=== PATIENT | male | born 1970 | race Caucasian/White ===

== ENCOUNTER 2019-12-07 23:08 | Emergency (ER) | payer OTHER, SELFPAY ==
[2019-12-07 23:12] VITALS: BP 138/94; PULSE 87; RESP 15; TEMP 36.6; O2SAT 98; BMI 28.0
--- NOTE | 2019-12-07 23:20 | ED_ITS ---
HPI - Allergic Reaction General Chief complaint: Allergic Reaction Stated complaint: Itchy Skin Time Seen by Provider: 12/07/19 23:10 Source: patient Mode of arrival: EMS Limitations: no limitations History of Present Illness HPI narrative: 49M without medical history presents with itchy skin that has since resolved. He denies any trouble swallowing, nor swelling of tongue, lips, throat or trouble breathing. He states he was in his normal state of health until this evening when he had a sudden onset of redness to his skin all over his body and he became intensely itchy. He took some benadryl and called the amb ulance and was nearly completely resolved by the time he is here. He denies any significant allergic history. He denies exposure to new foods, chemicals, or other possible stimuli. He is camping locally and was exposed to some camp smoke and a smoothie, but was yesterday too and without trouble. MD complaint: allergic reaction Onset (ago): hour(s) Exposure: unknown Symptoms: rash and itching Severity: moderate Treatment prior to arrival: benadryl Previous Allergic Reaction History: none Related Data Previous Rx's Medication Instructions Recorded prednisone 20 mg PO DAILY #5 tab 12/07/19 Allergies Allergy/AdvReac Type Severity Reaction Status Date / Time Penicillins Allergy Verified 12/07/19 23:12 Review of Systems Constitutional Constitutional: Denies chills, Denies fatigue, Denies fever(s), Denies frequent falls, Denies lethargy and Denies weakness Eyes Eyes: Denies change in vision, Denies eye discharge, Denies irritation and Denies loss of vision ENT Ears, Nose, Mouth, and Throat: Denies change in voice, Denies dizziness, Denies neck pain, Denies sore throat and Denies throat swelling Cardiovascular Cardiovascular: Denies chest pain, Denies irregular heart rhythm, Denies lightheadedness, Denies palpitations, Denies dyspnea, Denies dyspnea on exertion and Denies orthopnea Respiratory Respiratory: Denies cough, Denies dyspnea, Denies dyspnea on exertion and Denies wheezing Gastrointestinal Gastrointestinal: Denies abdominal pain, Denies change in bowel habits, Denies diarrhea, Denies nausea and Denies vomiting Musculoskeletal Musculoskeletal: Denies neck pain and Denies numbness Integumentary/Breasts Skin/Breast: Reports pruritus, Reports erythema, Reports rash and Denies wounds Neurologic Neurologic: Denies behavioral changes, Denies confusion, Denies dizziness, Denies frequent falls, Denies loss of vision, Denies numbness and Denies weakness Psychiatric Psychiatric: Denies anxiety, Denies behavioral changes, Denies confusion, Denies depression, Denies homicidal ideation and Denies suicidal ideation Endocrine Endocrine: Denies fatigue, Denies flushing and Denies palpitations Hematologic/Lymphatic Hematologic/Lymphatic: Denies easy bruising Allergic/Immunologic Allergic/Immunologic: Denies urticaria, Denies throat swelling and Denies wheezing Patient History Social History Smoking Status: Never smoker Smoking Status: Never smoker alcohol intake frequency: 0-2 drinks per day Substance Use Type: does not use Exam Narrative Exam Narrative: GENERAL: [49] year old patient appears stated age. Well- nourished, well-developed patient, in mild distress. HEAD: Atraumatic. Normocephalic. EYES: Pupils equal round and reactive. Extraocular motions intact. No scleral icterus. No injection or drainage. ENT: No swelling of tongue, lips, throat. Nose without bleeding, purulent drainage. Throat without erythema, tonsillar hypertrophy or exudate. Airway patent. NECK: Trachea midline. Non tender CARDIOVASCULAR: Regular rate and rhythm without murmurs, gallops, or rubs. RESPIRATORY: Clear to auscultation. Breath sounds equal bilaterally. No wheezes, rales, or rhonchi. GASTROINTESTINAL: Abdomen soft, non-tender, nondistended. EXTREMITIES: No edema or joint tenderness. BACK: Nontender without deformity or crepitance. No flank tenderness. NEURO: AOx3. SKIN: No rash or erythema of visible areas Initial Vital Signs Initial Vital Signs: Vital Signs Temperature 97.8 F 12/07/19 23:12 Pulse Rate 87 12/07/19 23:12 Respiratory Rate 15 12/07/19 23:12 Blood Pressure 138/94 H 12/07/19 23:12 Pulse Oximetry 98 12/07/19 23:12 Course Orders Ordered: Discontinued Medications Famotidine (Pepcid Ac) 40 mg PO NOW ONE Stop: 12/07/19 23:12 Last Admin: 12/07/19 23:23 Dose: 40 mg Documented by: [email or web address] Prednisone (Deltasone) 40 mg PO NOW ONE Stop: 12/07/19 23:16 Last Admin: 12/07/19 23:23 Dose: 40 mg Documented by: LATISHA Reevaluation(s) Reevaluation #1: patient has no symptoms. At worst he had no throat, lip, tongue, mouth, or breathing trouble. He needs to leave to get back home as the cabs are done soon. He understands that ideally we'd watch him for another 30 minutes or so but assumes this risk. He has been given return precautions and had questions answered to his apparent satisfaction Vital Signs Vital signs: Vital Signs - 8 hr 12/07/19 23:12 Temperature 97.8 F Pulse Rate 87 Respiratory Rate 15 Blood Pressure 138/94 H Pulse Oximetry 98 Discharge Plan Departure Patient Disposition: Home Clinical Impression: Allergic reaction Qualifiers: Encounter type: initial encounter Qualified Code(s): T78.40XA - Allergy, unspecified, initial encounter Instructions: DI for General Allergic Reactions Activity Restrictions/Additional Instructions: *You have been diagnosed with [allergic reaction] *What to do: *Take medications as directed, continue to take [id number] antihistamine such as Benadryl and famotidine as well as the prescription you have been given *Follow up with your primary care provider in 2-3 days, call for an appointment. Let them know you were seen in the Emergency Department and that we ask that you be seen in follow up *Return to ER if you should have any new, worsening or concerning symptoms Prescriptions: New prednisone 20 mg tablet 20 mg PO DAILY Qty: 5 RF: 0
[2019-12-07] MEDS: FAMOTIDINE 20 MG TABLET 40 MG PO (23:23)
[2019-12-07] MEDS: predniSONE 20 MG TABLET 40 MG PO (23:23)
[2019-12-07 23:36] VITALS: BP 121/77; PULSE 75; RESP 15; O2SAT 98
== END 2019-12-07 23:36 | disposition home or self-care (01) ==
LOC: ED 23:46
PROVIDERS: Emergency Provider Emergency Medicine
DX: T78.40XA Allergy, unspecified, initial encounter (principal)
CPT/HCPCS: 99283; A9270